=== PATIENT | female | born 1995 | race Caucasian/White ===

== ENCOUNTER 2021-07-24 06:13 | Emergency (ER) | payer SELFPAY ==
[~2021-07-24] VITALS: Ht 167.6 cm; Wt 569.0 kg
[2021-07-24 07:01] LABS: BASOPHILS % 2.5 % (0.0-2.0); EOSINOPHILS % 3.9 % (0.0-5.0); HEMATOCRIT. 31.1 % (36.0-48.0); HEMOGLOBIN. 9.7 g/dL (12.0-16.0); LYMPHOCYTES % 46.7 % (20.0-50.0); MEAN CORPUSCULAR VOLUME 60.8 fL (81.0-99.0); MEAN PLATELET VOLUME 7.3 fl (7.4-10.4); MONOCYTES % 8.2 % (2.0-8.0); NEUTROPHILS % 38.7 % (40.0-76.0); PLATELET 453 x1000/uL (130-400); RED BLOOD CELL COUNT 5.11 mill/uL (4.2-5.4); RED CELL DISTRIBUTION WIDTH 19.9 % (11.6-14.6)
[2021-07-24 07:15] LABS: CHLORIDE 110 mEq/L (98-107)
[2021-07-24 07:28] LABS: ETHANOL BLOOD 342 mg/dL
[2021-07-24 07:29] LABS: HCG SCREEN NEGATIVE
[2021-07-24 07:58] LABS: PLATELET ESTIMATE INCREASED
[2021-07-24 10:07] VITALS: BP 106/66
== END 2021-07-24 10:13 | disposition home or self-care (01) ==
LOC: EDBD 06:13 → ER 06:13
DX: F10.129 Alcohol abuse with intoxication, unspecified (principal); Y90.8 Blood alcohol level of 240 mg/100 ml or more
CPT/HCPCS: 36415; 80053; 80320; 84703; 85025; 99284; G0480